=== PATIENT | male | born 1995 | race Caucasian/White ===

== ENCOUNTER 2018-05-21 19:16 | Emergency (ER) | payer OTHER ==
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
[2018-05-21 21:04] VITALS: BP 117/77
== END 2018-05-21 21:04 | disposition home or self-care (01) ==
LOC: ER 19:16
DX: S29.012A Strain of muscle and tendon of back wall of thorax, initial encounter (principal); V49.40XA Driver injured in collision with unspecified motor vehicles in traffic accident, initial encounter
CPT/HCPCS: 72070; 99284